=== PATIENT | female | born 1965 | race Two or more races ===

== ENCOUNTER 2020-05-08 09:49 | Emergency (ER) | payer SELFPAY ==
[~2020-05-08] VITALS: Ht 165.1 cm; Wt 85.7 kg
[2020-05-08 10:25] LABS: Basophils # (auto) 0 10 ^3/uL (0-0.2); Basophils % (auto) 0.3 % (0.0-2.0); Eosinophils # (auto) 0.2 10 ^3/uL (0-0.8); Eosinophils % (auto) 1.3 % (0.0-7.0); Hematocrit 48.1 % (36.0-46.0); Hemoglobin 16.1 g/dL (12.2-16.2); Lymphocytes # (auto) 2.2 10 ^3/uL (0.4-5.4); Lymphocytes % (auto) 16.5 % (10.0-50.0); Mean Corpuscular Hgb Conc. 33.5 g/dL (32.0-36.0); Mean Corpuscular Volume 95.7 fL (80.0-100.0); Monocytes # (auto) 0.8 10 ^3/uL (0-1.3); Monocytes % (auto) 6.3 % (0.0-12.0); Neutrophils # (auto) 10.2 10 ^3/uL (1.6-8.6); Neutrophils % (auto) 75.6 % (37.0-80.0); Nucleated Red Blood Cells % 0.2 %; Platelet Count (auto) 318 10^3/uL (140-450); Red Blood Cells 5.03 10^6/uL (4.0-5.20); Red Cell Distribution Width 13.7 % (11.8-14.3); White Blood Cell 13.4 10^3/uL (4.4-10.8)
[2020-05-08] MEDS ORDERED: CLINDAMYCIN 600MG IV 50 ML IV ONE (10:45)
[2020-05-08] MEDS ORDERED: cefTRIAXone 1GM/50ML D5W 50 ML IV ONE (10:45)
[2020-05-08 11:05] LABS: Albumin 3.5 g/dL (3.4-5.0); BUN/Creatinine Ratio 7.1; Calcium 8.7 mg/dL (8.5-10.1)
[2020-05-08 11:17] LABS: Potassium 3.6 mmol/L (3.5-5.1); Total Protein 9.4 g/dL (6.4-8.2)
[2020-05-08] MEDS ORDERED: cefTRIAXone SOD 1,000 MG VL ONE (11:29)
[2020-05-08 14:00] VITALS: BP 133/71
== END 2020-05-08 14:09 | disposition home or self-care (01) ==
LOC: ER 09:49
DX: L03.116 Cellulitis of left lower limb (principal); E86.0 Dehydration; D72.829 Elevated white blood cell count, unspecified; E11.9 Type 2 diabetes mellitus without complications
CPT/HCPCS: 36415; 80053; 83605; 85025; 87040; 96365; 96366; 96368; 99284; J0696; J3490; J7030

== ENCOUNTER 2020-05-25 19:51 | Emergency (ER) | payer SELFPAY ==
[~2020-05-25] VITALS: Ht 162.6 cm; Wt 83.9 kg
[2020-05-25 22:09] LABS: Basophils # (auto) 0 10 ^3/uL (0-0.2); Basophils % (auto) 0.4 % (0.0-2.0); Eosinophils # (auto) 0.1 10 ^3/uL (0-0.8); Hemoglobin 16.9 g/dL (12.2-16.2); Lymphocytes # (auto) 2.2 10 ^3/uL (0.4-5.4); Lymphocytes % (auto) 25.9 % (10.0-50.0); Mean Corpuscular Hemoglobin 32.9 pg (28.0-32.0); Mean Corpuscular Hgb Conc. 34.5 g/dL (32.0-36.0); Mean Corpuscular Volume 95.4 fL (80.0-100.0); Monocytes # (auto) 0.6 10 ^3/uL (0-1.3); Monocytes % (auto) 7.3 % (0.0-12.0); Neutrophils # (auto) 5.4 10 ^3/uL (1.6-8.6); Neutrophils % (auto) 65.4 % (37.0-80.0); Nucleated Red Blood Cells % 0.1 %; Platelet Count (auto) 329 10^3/uL (140-450); Red Blood Cells 5.14 10^6/uL (4.0-5.20); White Blood Cell 8.3 10^3/uL (4.4-10.8)
[2020-05-25 22:27] LABS: Albumin 3.9 g/dL (3.4-5.0); Calcium 9.1 mg/dL (8.5-10.1); Potassium 4.2 mmol/L (3.5-5.1)
[2020-05-25 22:29] LABS: BUN/Creatinine Ratio 6.8
[2020-05-25 22:32] LABS: Bilirubin, Total 0.7 mg/dL (0.2-1.0); Total Protein 10.1 g/dL (6.4-8.2)
[2020-05-26] MEDS ORDERED: CLINDAMYCIN 900MG IV 50 ML IV ONE (03:00)
[2020-05-26] MEDS ORDERED: PIPERACILLIN-TAZOB 3.375GM 100 ML IV ONE (03:00)
[2020-05-26] MEDS ORDERED: SODIUM CHLORIDE 0.9% 1,000 ML IV SCH (03:25)
[2020-05-26] MEDS ORDERED: DOCUSATE SOD 100 MG CAP PO PRN (03:30)
[2020-05-26] MEDS ORDERED: MORPHINE SULF INJ 2 MG/ML SYRINGE 1ML IV PRN (03:30)
[2020-05-26] MEDS ORDERED: DEXTROSE (50%) 50ML SYRG IV PRN (03:30)
[2020-05-26] MEDS ORDERED: TEMAZEPAM 15 MG CAP PO PRN (03:30)
[2020-05-26] MEDS ORDERED: ACETAMINOPHEN 325 MG TAB PO PRN (03:30)
[2020-05-26] MEDS ORDERED: HYDROcodone-ACET 5/325MG TAB PO PRN (03:30)
[2020-05-26] MEDS ORDERED: LORazepam 0.5 MG TAB PO PRN (03:30)
[2020-05-26] MEDS ORDERED: ONDANSETRON HCL 4 MG/2 ML VIAL IV PRN (03:30)
[2020-05-26] MEDS ORDERED: LORazepam 2MG/ML-1ML VIAL IV ONE ×2 (04:15→12:00)
[2020-05-26 05:12] LABS: Urine Bacteria FEW /hpf (None Seen); Urine Blood Negative /uL (Negative); Urine Specific Gravity 1.005 (1.001-1.035); Urine WBC <1 /hpf (0 - 5)
[2020-05-26] MEDS: ACCU-CHEK COMFORT CURVE STRIP VI SCH ×2 (06:03→12:12)
[2020-05-26] MEDS: InsuLIN REG 1unit/0.01ml Soln (100units/ml) SC SCH ×2 (06:07→12:48)
[2020-05-26 09:22] LABS: Basophils # (auto) 0 10 ^3/uL (0-0.2); Basophils % (auto) 0.2 % (0.0-2.0); Eosinophils # (auto) 0.1 10 ^3/uL (0-0.8); Eosinophils % (auto) 1.1 % (0.0-7.0); Hematocrit 44.2 % (36.0-46.0); Hemoglobin 15.2 g/dL (12.2-16.2); Lymphocytes # (auto) 1.9 10 ^3/uL (0.4-5.4); Lymphocytes % (auto) 26.5 % (10.0-50.0); Mean Corpuscular Hemoglobin 32.6 pg (28.0-32.0); Mean Corpuscular Hgb Conc. 34.3 g/dL (32.0-36.0); Monocytes # (auto) 0.7 10 ^3/uL (0-1.3); Monocytes % (auto) 9.6 % (0.0-12.0); Neutrophils # (auto) 4.4 10 ^3/uL (1.6-8.6); Neutrophils % (auto) 62.6 % (37.0-80.0); Nucleated Red Blood Cells % 0.2 %; Platelet Count (auto) 280 10^3/uL (140-450); Red Blood Cells 4.66 10^6/uL (4.0-5.20); Red Cell Distribution Width 12.8 % (11.8-14.3)
[2020-05-26 09:46] LABS: BUN/Creatinine Ratio 7.3; Potassium 3.9 mmol/L (3.5-5.1)
[2020-05-26] MEDS ORDERED: VANCOMYCIN 1GM/250ML 250 ML IV SCH (10:00)
[2020-05-26 12:17] VITALS: BP 131/67
[2020-05-26] MEDS ORDERED: PIPERACILLIN-TAZOB 3.375GM 100 ML IV SCH (14:00)
== END 2020-05-26 13:32 | disposition left against medical advice (07) ==
LOC: ER 19:53 → UNDOADMIN 19:54 → OVERFLOW 19:54 → ER 05-26 13:20
DX: L03.116 Cellulitis of left lower limb (principal); L03.115 Cellulitis of right lower limb; E11.9 Type 2 diabetes mellitus without complications; Z90.710 Acquired absence of both cervix and uterus
CPT/HCPCS: 36415; 73700; 80048; 80053; 81001; 82962; 83036; 85025; 87205; 96365; 96366; 96367; 96368; 96372; 96376; 99285; J1815; J2060; J2405; J2543; J3370; J3490; J7030

== ENCOUNTER 2021-02-04 18:31 | Emergency (ER) | payer BC, OTHER ==
[~2021-02-04] VITALS: Ht 165.1 cm; Wt 72.6 kg
[2021-02-04 18:34] VITALS: BP 153/78
== END 2021-02-04 20:45 | disposition left against medical advice (07) ==
LOC: ER 18:33
DX: L02.416 Cutaneous abscess of left lower limb (principal); L02.415 Cutaneous abscess of right lower limb; Z53.21 Procedure and treatment not carried out due to patient leaving prior to being seen by health care provider

== ENCOUNTER 2021-04-30 16:03 | Emergency (ER) | payer BC ==
[~2021-04-30] VITALS: Ht 162.6 cm; Wt 72.6 kg
[~2021-04-30 16:03] MED LIST: CLON0.1T14 PO; METF-370 PO; METH10TA6 PO; ONDA-155 PO
[2021-04-30 19:20] VITALS: BP 150/82
== END 2021-04-30 21:35 | disposition home or self-care (01) ==
LOC: ER 16:03
DX: L02.414 Cutaneous abscess of left upper limb (principal); R07.89 Other chest pain; E11.9 Type 2 diabetes mellitus without complications; F11.10 Opioid abuse, uncomplicated; Z90.710 Acquired absence of both cervix and uterus
CPT/HCPCS: 10060; 93005